=== PATIENT | male | born 1930 | race Caucasian/White ===

== ENCOUNTER 2017-08-19 15:33 | Inpatient (IN) | payer MEDICARE, SELFPAY ==
[~2017-08-19] VITALS: Ht 175.3 cm; Wt 67.7 kg
[2017-08-19] MEDS ORDERED: Carbidopa-Levo1 EAC1 PO (16:15)
[2017-08-19] MEDS ORDERED: TAMS.4ER PO (16:15)
[2017-08-19] MEDS ORDERED: BUME2 PO (16:15)
[2017-08-19] MEDS ORDERED: ELIQUIS2.5 MG PO (16:15)
[2017-08-19] MEDS ORDERED: AMLO10 PO (16:15)
[2017-08-19] MEDS ORDERED: METO50ER PO (16:15)
[2017-08-19 17:24] LABS: BASOPHILS ABSOLUTE AUTO 0.05 K/mm3 (0.00-0.23); BASOPHILS PERCENT AUTO 1 % (0-2); EOSINOPHILS ABSOLUTE AUTO 0.12 K/mm3 (0.00-0.68); EOSINOPHILS PERCENT AUTO 2 % (0-6); Hematocrit 33.8 % (37.0-53.0); Hemoglobin 11.4 g/dL (13.5-17.5); IMMATURE GRAN ABSOLUTE AUTO 0.02 K/mm3 (0.00-0.10); IMMATURE GRAN PERCENT AUTO 0 % (0-1); LYMPHOCYTES ABSOLUTE AUTO 1.29 K/mm3 (0.84-5.20); LYMPHOCYTES PERCENT AUTO 21 % (21-46); MONOCYTES PERCENT AUTO 11 % (4-13); Mean Corpuscular HGB 33.1 pg (26.0-34.0); Mean Corpuscular HGB Conc 33.7 g/dL (31.5-36.5); Mean Corpuscular Volume 98 fL (80-100); NEUTROPHILS ABSOLUTE AUTO 4.06 K/mm3 (1.96-9.15); NEUTROPHILS PERCENT AUTO 65 % (41-73); Platelet Count 228 K/mm3 (150-400); RDW Coefficient Variation 12.1 % (11.7-14.2); RDW Standard Deviation 43.9 fL (35.1-46.3); Red Blood Cell Count 3.44 M/mm3 (4.30-5.90); White Blood Cell Count 6.24 K/mm3 (4.00-11.30)
[2017-08-19 17:49] LABS: Alanine Aminotransfer (ALT/SGP 8 U/L (12-78); Albumin, Blood 3.5 g/dL (3.4-5.0); Albumin/Globulin Ratio 0.8 (0.8-1.8); Alk Phos 103 U/L (50-136); Anion Gap 10 mmol/L (6-16); Aspartate Aminotrans (AST/SGOT 20 U/L (12-37); Bilirubin, Total 0.8 mg/dL (0.1-1.0); Blood Urea Nitrogen 30 mg/dL (8-24); Bun/Creatinine Ratio 14.9 (12.0-20.0); CO2, Blood 31 mmol/L (21-32); Chloride, Blood 99 mmol/L (98-108); Creatinine, Blood 2.02 mg/dL (0.60-1.20); Globulin, Blood 4.2 g/dL (2.2-4.0); Glomerular Filtration Rate 33 (60-); Glucose, Blood 83 mg/dL (70-99); Potassium, Blood 3.4 mmol/L (3.5-5.5); Sodium, Blood 140 mmol/L (136-145); Total Protein, Blood 7.7 g/dL (6.4-8.2)
[2017-08-19 17:50] LABS: Troponin I <0.015 ng/mL (0.000-0.040)
[2017-08-19 18:16] LABS: International Normalized Ratio 1.08; Prothrombin Time Results 11.3 Sec (9.7-11.5)
[2017-08-20 05:14] LABS: BASOPHILS ABSOLUTE AUTO 0.02 K/mm3 (0.00-0.23); BASOPHILS PERCENT AUTO 0 % (0-2); EOSINOPHILS PERCENT AUTO 4 % (0-6); Hematocrit 29.9 % (37.0-53.0); Hemoglobin 10.2 g/dL (13.5-17.5); IMMATURE GRAN ABSOLUTE AUTO 0.01 K/mm3 (0.00-0.10); IMMATURE GRAN PERCENT AUTO 0 % (0-1); LYMPHOCYTES ABSOLUTE AUTO 0.94 K/mm3 (0.84-5.20); LYMPHOCYTES PERCENT AUTO 17 % (21-46); MONOCYTES ABSOLUTE AUTO 0.67 K/mm3 (0.16-1.47); MONOCYTES PERCENT AUTO 12 % (4-13); Mean Corpuscular HGB 33.8 pg (26.0-34.0); Mean Corpuscular HGB Conc 34.1 g/dL (31.5-36.5); Mean Corpuscular Volume 99 fL (80-100); Mean Platelet Volume 10.2 fL (9.1-12.4); NEUTROPHILS ABSOLUTE AUTO 3.65 K/mm3 (1.96-9.15); NEUTROPHILS PERCENT AUTO 67 % (41-73); Platelet Count 203 K/mm3 (150-400); RDW Standard Deviation 43.8 fL (35.1-46.3); Red Blood Cell Count 3.02 M/mm3 (4.30-5.90); White Blood Cell Count 5.49 K/mm3 (4.00-11.30)
[2017-08-20 06:00] LABS: Bun/Creatinine Ratio 17.4 (12.0-20.0); Calcium, Blood 8.5 mg/dL (8.5-10.1); Creatinine, Blood 1.84 mg/dL (0.60-1.20); Potassium, Blood 3.4 mmol/L (3.5-5.5)
[2017-08-20 13:27] LABS: Vancomycin, Random 8.8 ug/mL
[2017-08-21 05:23] LABS: BASOPHILS ABSOLUTE AUTO 0.05 K/mm3 (0.00-0.23); BASOPHILS PERCENT AUTO 1 % (0-2); EOSINOPHILS ABSOLUTE AUTO 0.21 K/mm3 (0.00-0.68); EOSINOPHILS PERCENT AUTO 4 % (0-6); Hematocrit 32.6 % (37.0-53.0); Hemoglobin 11.1 g/dL (13.5-17.5); IMMATURE GRAN ABSOLUTE AUTO 0.01 K/mm3 (0.00-0.10); IMMATURE GRAN PERCENT AUTO 0 % (0-1); LYMPHOCYTES ABSOLUTE AUTO 0.97 K/mm3 (0.84-5.20); LYMPHOCYTES PERCENT AUTO 17 % (21-46); MONOCYTES ABSOLUTE AUTO 0.65 K/mm3 (0.16-1.47); MONOCYTES PERCENT AUTO 11 % (4-13); Mean Corpuscular HGB 33.1 pg (26.0-34.0); Mean Corpuscular Volume 97 fL (80-100); Mean Platelet Volume 9.9 fL (9.1-12.4); NEUTROPHILS PERCENT AUTO 67 % (41-73); Platelet Count 202 K/mm3 (150-400); RDW Coefficient Variation 11.9 % (11.7-14.2); RDW Standard Deviation 42.8 fL (35.1-46.3); Red Blood Cell Count 3.35 M/mm3 (4.30-5.90); White Blood Cell Count 5.79 K/mm3 (4.00-11.30)
[2017-08-21 05:46] LABS: Anion Gap 8 mmol/L (6-16); Blood Urea Nitrogen 32 mg/dL (8-24); Bun/Creatinine Ratio 17.9 (12.0-20.0); CO2, Blood 30 mmol/L (21-32); Calcium, Blood 8.6 mg/dL (8.5-10.1); Chloride, Blood 99 mmol/L (98-108); Creatinine, Blood 1.79 mg/dL (0.60-1.20); Glomerular Filtration Rate 38 (60-); Glucose, Blood 90 mg/dL (70-99); Potassium, Blood 3.8 mmol/L (3.5-5.5); Sodium, Blood 137 mmol/L (136-145); Vancomycin, Random 16.7 ug/mL
[2017-08-22 05:54] LABS: Vancomycin, Random 20.2 ug/mL
[2017-08-22] MEDS ORDERED: CEPH250A PO (10:48)
== END 2017-08-22 11:30 | disposition home or self-care (01) | DRG 607 ==
LOC: ER 15:33 → MEDS 18:46 → ENPENDDIS 08-22 10:26 → MEDS 08-22 11:30
PROVIDERS: Emergency Medicine; Hospitalist; Physician Assistant
DX: S80.822A Blister (nonthermal), left lower leg, initial encounter (principal); N17.9 Acute kidney failure, unspecified; G20 Parkinson's disease; I48.91 Unspecified atrial fibrillation; L03.116 Cellulitis of left lower limb; J44.9 Chronic obstructive pulmonary disease, unspecified; I12.9 Hypertensive chronic kidney disease with stage 1 through stage 4 chronic kidney disease, or unspecified chronic kidney disease; E87.6 Hypokalemia; F17.211 Nicotine dependence, cigarettes, in remission; M79.605 Pain in left leg; N18.9 Chronic kidney disease, unspecified; X58.XXXA Exposure to other specified factors, initial encounter; I87.302 Chronic venous hypertension (idiopathic) without complications of left lower extremity; B95.62 Methicillin resistant Staphylococcus aureus infection as the cause of diseases classified elsewhere; L08.9 Local infection of the skin and subcutaneous tissue, unspecified
CPT/HCPCS: 36415; 71046; 80048; 80053; 80202; 83605; 83880; 84484; 85025; 85610; 85730; 87040; 87070; 87077; 87147; 87186; 87205; 93005; 93010; 93306; 94640; 94760; 96365; 97161; 97530; 99285; G8978; G8979; G8980; J1650; J3370; J7050

== ENCOUNTER 2017-10-29 18:21 | Emergency (ER) | payer MEDICARE, SELFPAY ==
[~2017-10-29] VITALS: Ht 175.3 cm; Wt 59.0 kg
[~2017-10-29 18:21] MED LIST: AMLO10 PO; BUME2 PO; CEPH250A PO; Carbidopa-Levo1 EAC1 PO; ELIQUIS2.5 MG PO; METO50ER PO; TAMS.4ER PO
[2017-10-29 19:28] LABS: BASOPHILS ABSOLUTE AUTO 0.06 K/mm3 (0.00-0.23); BASOPHILS PERCENT AUTO 1 % (0-2); EOSINOPHILS ABSOLUTE AUTO 0.13 K/mm3 (0.00-0.68); EOSINOPHILS PERCENT AUTO 2 % (0-6); Hematocrit 32.5 % (37.0-53.0); IMMATURE GRAN ABSOLUTE AUTO 0.01 K/mm3 (0.00-0.10); IMMATURE GRAN PERCENT AUTO 0 % (0-1); LYMPHOCYTES ABSOLUTE AUTO 0.98 K/mm3 (0.84-5.20); LYMPHOCYTES PERCENT AUTO 17 % (21-46); MONOCYTES ABSOLUTE AUTO 0.61 K/mm3 (0.16-1.47); MONOCYTES PERCENT AUTO 11 % (4-13); Mean Corpuscular HGB 33.7 pg (26.0-34.0); Mean Corpuscular HGB Conc 33.8 g/dL (31.5-36.5); Mean Corpuscular Volume 100 fL (80-100); Mean Platelet Volume 9.7 fL (9.1-12.4); NEUTROPHILS ABSOLUTE AUTO 3.93 K/mm3 (1.96-9.15); NEUTROPHILS PERCENT AUTO 69 % (41-73); Platelet Count 200 K/mm3 (150-400); RDW Coefficient Variation 12.1 % (11.7-14.2); Red Blood Cell Count 3.26 M/mm3 (4.30-5.90); White Blood Cell Count 5.72 K/mm3 (4.00-11.30)
[2017-10-29 19:46] LABS: Alanine Aminotransfer (ALT/SGP 7 U/L (12-78); Albumin, Blood 3.6 g/dL (3.4-5.0); Albumin/Globulin Ratio 0.9 (0.8-1.8); Alk Phos 97 U/L (50-136); Anion Gap 7 mmol/L (6-16); Aspartate Aminotrans (AST/SGOT 18 U/L (12-37); Bilirubin, Total 0.7 mg/dL (0.1-1.0); Blood Urea Nitrogen 47 mg/dL (8-24); Bun/Creatinine Ratio 21.1 (12.0-20.0); CO2, Blood 32 mmol/L (21-32); Calcium, Blood 9.3 mg/dL (8.5-10.1); Chloride, Blood 100 mmol/L (98-108); Creatinine, Blood 2.23 mg/dL (0.60-1.20); Globulin, Blood 3.9 g/dL (2.2-4.0); Glomerular Filtration Rate 30 (60-); Glucose, Blood 91 mg/dL (70-99); Potassium, Blood 3.8 mmol/L (3.5-5.5); Sodium, Blood 139 mmol/L (136-145); Total Protein, Blood 7.5 g/dL (6.4-8.2)
[2017-10-29 20:00] LABS: Troponin I <0.015 ng/mL (0.000-0.040)
== END 2017-10-29 21:20 | disposition home or self-care (01) ==
LOC: ER 18:21
PROVIDERS: Physician Assistant
DX: L30.9 Dermatitis, unspecified (principal); R60.0 Localized edema; Z79.899 Other long term (current) drug therapy; Z87.891 Personal history of nicotine dependence
CPT/HCPCS: 36415; 71046; 80053; 83880; 84484; 85025; 93005; 93010; 99284

== ENCOUNTER 2017-11-01 18:36 | Emergency (ER) | payer MEDICARE, SELFPAY ==
[~2017-11-01] VITALS: Ht 175.3 cm; Wt 68.0 kg
[2017-11-01 19:45] LABS: BASOPHILS ABSOLUTE AUTO 0.06 K/mm3 (0.00-0.23); BASOPHILS PERCENT AUTO 1 % (0-2); EOSINOPHILS ABSOLUTE AUTO 0.12 K/mm3 (0.00-0.68); EOSINOPHILS PERCENT AUTO 2 % (0-6); Hematocrit 27.9 % (37.0-53.0); Hemoglobin 9.6 g/dL (13.5-17.5); IMMATURE GRAN ABSOLUTE AUTO 0.02 K/mm3 (0.00-0.10); IMMATURE GRAN PERCENT AUTO 0 % (0-1); LYMPHOCYTES ABSOLUTE AUTO 1.06 K/mm3 (0.84-5.20); LYMPHOCYTES PERCENT AUTO 16 % (21-46); MONOCYTES ABSOLUTE AUTO 0.67 K/mm3 (0.16-1.47); MONOCYTES PERCENT AUTO 10 % (4-13); Mean Corpuscular HGB 33.9 pg (26.0-34.0); Mean Corpuscular HGB Conc 34.4 g/dL (31.5-36.5); Mean Corpuscular Volume 99 fL (80-100); Mean Platelet Volume 10.5 fL (9.1-12.4); NEUTROPHILS ABSOLUTE AUTO 4.66 K/mm3 (1.96-9.15); NEUTROPHILS PERCENT AUTO 71 % (41-73); Platelet Count 217 K/mm3 (150-400); RDW Coefficient Variation 12.2 % (11.7-14.2); RDW Standard Deviation 43.9 fL (35.1-46.3); Red Blood Cell Count 2.83 M/mm3 (4.30-5.90); White Blood Cell Count 6.59 K/mm3 (4.00-11.30)
[2017-11-01 19:59] LABS: Albumin, Blood 3.6 g/dL (3.4-5.0); Albumin/Globulin Ratio 0.9 (0.8-1.8); Bilirubin, Total 0.5 mg/dL (0.1-1.0); Bun/Creatinine Ratio 21.8 (12.0-20.0); Calcium, Blood 9.1 mg/dL (8.5-10.1); Creatinine, Blood 2.34 mg/dL (0.60-1.20); Globulin, Blood 3.9 g/dL (2.2-4.0); Potassium, Blood 3.9 mmol/L (3.5-5.5); Total Protein, Blood 7.5 g/dL (6.4-8.2)
== END 2017-11-01 20:29 | disposition home or self-care (01) ==
LOC: ER 18:36
PROVIDERS: Emergency Medicine
DX: R41.82 Altered mental status, unspecified (principal); D64.9 Anemia, unspecified; N28.9 Disorder of kidney and ureter, unspecified; I10 Essential (primary) hypertension; I48.91 Unspecified atrial fibrillation; G20 Parkinson's disease; J44.9 Chronic obstructive pulmonary disease, unspecified; Z87.891 Personal history of nicotine dependence; Z79.899 Other long term (current) drug therapy
CPT/HCPCS: 36415; 80053; 85025; 93005; 93010; 99283

== ENCOUNTER 2018-01-31 13:56 | Inpatient (IN) | payer MEDICARE, SELFPAY ==
[~2018-01-31] VITALS: Ht 175.3 cm; Wt 68.0 kg
[2018-01-31 14:56] LABS: BASOPHILS ABSOLUTE AUTO 0.04 K/mm3 (0.00-0.23); BASOPHILS PERCENT AUTO 1 % (0-2); EOSINOPHILS PERCENT AUTO 5 % (0-6); Hemoglobin 9.9 g/dL (13.5-17.5); IMMATURE GRAN ABSOLUTE AUTO 0.01 K/mm3 (0.00-0.10); IMMATURE GRAN PERCENT AUTO 0 % (0-1); LYMPHOCYTES ABSOLUTE AUTO 0.66 K/mm3 (0.84-5.20); LYMPHOCYTES PERCENT AUTO 11 % (21-46); MONOCYTES ABSOLUTE AUTO 0.62 K/mm3 (0.16-1.47); MONOCYTES PERCENT AUTO 10 % (4-13); Mean Corpuscular HGB 33.6 pg (26.0-34.0); Mean Corpuscular Volume 102 fL (80-100); Mean Platelet Volume 10.9 fL (9.1-12.4); NEUTROPHILS ABSOLUTE AUTO 4.61 K/mm3 (1.96-9.15); NEUTROPHILS PERCENT AUTO 74 % (41-73); Platelet Count 205 K/mm3 (150-400); RDW Coefficient Variation 12.6 % (11.7-14.2); RDW Standard Deviation 46.5 fL (35.1-46.3); Red Blood Cell Count 2.95 M/mm3 (4.30-5.90); White Blood Cell Count 6.24 K/mm3 (4.00-11.30)
[2018-01-31 15:13] LABS: Albumin, Blood 2.7 g/dL (3.4-5.0); Albumin/Globulin Ratio 0.7 (0.8-1.8); Bilirubin, Total 0.3 mg/dL (0.1-1.0); Bun/Creatinine Ratio 24.3 (12.0-20.0); Calcium, Blood 8.5 mg/dL (8.5-10.1); Creatinine, Blood 2.67 mg/dL (0.60-1.20); Globulin, Blood 3.8 g/dL (2.2-4.0); Potassium, Blood 3.8 mmol/L (3.5-5.5); Total Protein, Blood 6.5 g/dL (6.4-8.2); Troponin I 0.018 ng/mL (0.000-0.040)
[2018-01-31 15:51] LABS: Source, Urine Clean Catch
[2018-01-31 15:58] LABS: Appearance, Urine Clear (Clear); Bilirubin, Urine Neg (Neg); Blood, Urine Neg (Neg); Color, Urine Yellow (P-Yellow); Glucose Qualitative, Urine Neg (Neg); Ketones, Urine Neg (Neg); Leukocyte Esterase, Urine Neg (Neg); Nitrite, Urine Neg (Neg); Protein, Urine 2+ (Neg); Specific Gravity, Urine 1.015 (1.003-1.022); Urobilinogen, Urine NORM (Normal)
[2018-01-31 16:07] LABS: Bacteria Rare /hpf; Red Blood Cells, Urine 0-2 /hpf (0-2); Squamous Epithelial Cells Rare /hpf (Few); White Blood Cells, Urine 0-2 /hpf (0-5)
[2018-01-31 17:58] LABS: Magnesium, Blood 2.4 mg/dL (1.6-2.4)
[2018-01-31] MEDS ORDERED: SPIR25 PO (18:33)
[2018-02-01 05:03] LABS: BASOPHILS ABSOLUTE AUTO 0.03 K/mm3 (0.00-0.23); BASOPHILS PERCENT AUTO 1 % (0-2); EOSINOPHILS ABSOLUTE AUTO 0.47 K/mm3 (0.00-0.68); EOSINOPHILS PERCENT AUTO 7 % (0-6); Hematocrit 27.2 % (37.0-53.0); IMMATURE GRAN ABSOLUTE AUTO 0.03 K/mm3 (0.00-0.10); IMMATURE GRAN PERCENT AUTO 1 % (0-1); LYMPHOCYTES ABSOLUTE AUTO 0.59 K/mm3 (0.84-5.20); LYMPHOCYTES PERCENT AUTO 9 % (21-46); MONOCYTES ABSOLUTE AUTO 0.58 K/mm3 (0.16-1.47); MONOCYTES PERCENT AUTO 9 % (4-13); Mean Corpuscular HGB 32.6 pg (26.0-34.0); Mean Corpuscular HGB Conc 33.1 g/dL (31.5-36.5); Mean Platelet Volume 10.7 fL (9.1-12.4); NEUTROPHILS ABSOLUTE AUTO 4.65 K/mm3 (1.96-9.15); NEUTROPHILS PERCENT AUTO 73 % (41-73); Platelet Count 208 K/mm3 (150-400); RDW Coefficient Variation 12.7 % (11.7-14.2); RDW Standard Deviation 45.2 fL (35.1-46.3); Red Blood Cell Count 2.76 M/mm3 (4.30-5.90); White Blood Cell Count 6.35 K/mm3 (4.00-11.30)
[2018-02-01 05:05] LABS: Mean Corpuscular Volume 99 fL (80-100)
[2018-02-01 05:28] LABS: Calcium, Blood 8.1 mg/dL (8.5-10.1); Creatinine, Blood 2.44 mg/dL (0.60-1.20); Potassium, Blood 3.7 mmol/L (3.5-5.5)
[2018-02-01] MEDS ORDERED: Hair, Skin & N1 EACH PO (10:12)
[2018-02-01] MEDS ORDERED: VITAMIN C500 M1 PO (10:12)
[2018-02-01] MEDS ORDERED: FISH OIL 500 M1 EAC1 PO (10:13)
[2018-02-02 04:49] LABS: BASOPHILS ABSOLUTE AUTO 0.03 K/mm3 (0.00-0.23); BASOPHILS PERCENT AUTO 1 % (0-2); EOSINOPHILS ABSOLUTE AUTO 0.51 K/mm3 (0.00-0.68); EOSINOPHILS PERCENT AUTO 8 % (0-6); Hematocrit 29.6 % (37.0-53.0); Hemoglobin 9.7 g/dL (13.5-17.5); IMMATURE GRAN ABSOLUTE AUTO 0.02 K/mm3 (0.00-0.10); IMMATURE GRAN PERCENT AUTO 0 % (0-1); LYMPHOCYTES ABSOLUTE AUTO 0.72 K/mm3 (0.84-5.20); LYMPHOCYTES PERCENT AUTO 11 % (21-46); MONOCYTES ABSOLUTE AUTO 0.68 K/mm3 (0.16-1.47); MONOCYTES PERCENT AUTO 10 % (4-13); Mean Corpuscular HGB 32.3 pg (26.0-34.0); Mean Corpuscular HGB Conc 32.8 g/dL (31.5-36.5); Mean Corpuscular Volume 99 fL (80-100); Mean Platelet Volume 10.6 fL (9.1-12.4); NEUTROPHILS ABSOLUTE AUTO 4.69 K/mm3 (1.96-9.15); NEUTROPHILS PERCENT AUTO 71 % (41-73); Platelet Count 198 K/mm3 (150-400); RDW Coefficient Variation 12.6 % (11.7-14.2); RDW Standard Deviation 45.3 fL (35.1-46.3); White Blood Cell Count 6.65 K/mm3 (4.00-11.30)
[2018-02-02 05:08] LABS: Albumin, Blood 2.3 g/dL (3.4-5.0); Anion Gap 9 mmol/L (6-16); Blood Urea Nitrogen 52 mg/dL (8-24); Bun/Creatinine Ratio 24.3 (12.0-20.0); CO2, Blood 29 mmol/L (21-32); Chloride, Blood 101 mmol/L (98-108); Creatinine, Blood 2.14 mg/dL (0.60-1.20); Glomerular Filtration Rate 31 (60-); Glucose, Blood 89 mg/dL (70-99); Phosphorus, Blood 2.2 mg/dL (2.5-4.9); Potassium, Blood 4.2 mmol/L (3.5-5.5); Sodium, Blood 139 mmol/L (136-145)
[2018-02-03 05:11] LABS: BASOPHILS ABSOLUTE AUTO 0.04 K/mm3 (0.00-0.23); BASOPHILS PERCENT AUTO 1 % (0-2); EOSINOPHILS ABSOLUTE AUTO 0.56 K/mm3 (0.00-0.68); EOSINOPHILS PERCENT AUTO 9 % (0-6); Hematocrit 29.2 % (37.0-53.0); Hemoglobin 9.9 g/dL (13.5-17.5); IMMATURE GRAN ABSOLUTE AUTO 0.04 K/mm3 (0.00-0.10); IMMATURE GRAN PERCENT AUTO 1 % (0-1); LYMPHOCYTES PERCENT AUTO 11 % (21-46); MONOCYTES ABSOLUTE AUTO 0.59 K/mm3 (0.16-1.47); MONOCYTES PERCENT AUTO 9 % (4-13); Mean Corpuscular HGB 33.2 pg (26.0-34.0); Mean Corpuscular HGB Conc 33.9 g/dL (31.5-36.5); Mean Corpuscular Volume 98 fL (80-100); Mean Platelet Volume 10.6 fL (9.1-12.4); NEUTROPHILS PERCENT AUTO 71 % (41-73); Platelet Count 194 K/mm3 (150-400); RDW Coefficient Variation 12.5 % (11.7-14.2); RDW Standard Deviation 44.8 fL (35.1-46.3); Red Blood Cell Count 2.98 M/mm3 (4.30-5.90); White Blood Cell Count 6.53 K/mm3 (4.00-11.30)
[2018-02-03 05:30] LABS: Albumin, Blood 2.2 g/dL (3.4-5.0); Anion Gap 9 mmol/L (6-16); Blood Urea Nitrogen 46 mg/dL (8-24); Bun/Creatinine Ratio 23.7 (12.0-20.0); CO2, Blood 28 mmol/L (21-32); Calcium, Blood 7.7 mg/dL (8.5-10.1); Chloride, Blood 101 mmol/L (98-108); Creatinine, Blood 1.94 mg/dL (0.60-1.20); Glomerular Filtration Rate 35 (60-); Glucose, Blood 84 mg/dL (70-99); Phosphorus, Blood 2.1 mg/dL (2.5-4.9); Potassium, Blood 3.8 mmol/L (3.5-5.5); Sodium, Blood 138 mmol/L (136-145)
[2018-02-04 04:51] LABS: BASOPHILS ABSOLUTE AUTO 0.03 K/mm3 (0.00-0.23); BASOPHILS PERCENT AUTO 1 % (0-2); EOSINOPHILS ABSOLUTE AUTO 0.63 K/mm3 (0.00-0.68); EOSINOPHILS PERCENT AUTO 10 % (0-6); Hematocrit 29.2 % (37.0-53.0); Hemoglobin 9.7 g/dL (13.5-17.5); IMMATURE GRAN ABSOLUTE AUTO 0.03 K/mm3 (0.00-0.10); IMMATURE GRAN PERCENT AUTO 1 % (0-1); LYMPHOCYTES ABSOLUTE AUTO 0.72 K/mm3 (0.84-5.20); LYMPHOCYTES PERCENT AUTO 11 % (21-46); MONOCYTES ABSOLUTE AUTO 0.61 K/mm3 (0.16-1.47); MONOCYTES PERCENT AUTO 9 % (4-13); Mean Corpuscular HGB 32.4 pg (26.0-34.0); Mean Corpuscular HGB Conc 33.2 g/dL (31.5-36.5); Mean Corpuscular Volume 98 fL (80-100); Mean Platelet Volume 10.5 fL (9.1-12.4); NEUTROPHILS PERCENT AUTO 69 % (41-73); Platelet Count 215 K/mm3 (150-400); RDW Coefficient Variation 12.7 % (11.7-14.2); RDW Standard Deviation 44.6 fL (35.1-46.3); Red Blood Cell Count 2.99 M/mm3 (4.30-5.90); White Blood Cell Count 6.52 K/mm3 (4.00-11.30)
[2018-02-04 05:12] LABS: Albumin, Blood 2.2 g/dL (3.4-5.0); Anion Gap 8 mmol/L (6-16); Blood Urea Nitrogen 43 mg/dL (8-24); Bun/Creatinine Ratio 24.4 (12.0-20.0); CO2, Blood 28 mmol/L (21-32); Calcium, Blood 7.7 mg/dL (8.5-10.1); Chloride, Blood 105 mmol/L (98-108); Creatinine, Blood 1.76 mg/dL (0.60-1.20); Glomerular Filtration Rate 39 (60-); Glucose, Blood 83 mg/dL (70-99); Phosphorus, Blood 2.3 mg/dL (2.5-4.9); Potassium, Blood 4.2 mmol/L (3.5-5.5); Sodium, Blood 141 mmol/L (136-145)
[2018-02-05 04:57] LABS: Albumin, Blood 2.2 g/dL (3.4-5.0); Anion Gap 7 mmol/L (6-16); Blood Urea Nitrogen 45 mg/dL (8-24); Bun/Creatinine Ratio 27.1 (12.0-20.0); CO2, Blood 28 mmol/L (21-32); Calcium, Blood 7.7 mg/dL (8.5-10.1); Chloride, Blood 104 mmol/L (98-108); Creatinine, Blood 1.66 mg/dL (0.60-1.20); Glomerular Filtration Rate 42 (60-); Glucose, Blood 129 mg/dL (70-99); Phosphorus, Blood 1.9 mg/dL (2.5-4.9); Potassium, Blood 4.1 mmol/L (3.5-5.5); Sodium, Blood 139 mmol/L (136-145)
[2018-02-05] MEDS ORDERED: ACET325 PO (11:28)
[2018-02-05] MEDS ORDERED: AMLO10 PO (11:29)
[2018-02-05] MEDS ORDERED: CEPH500 (11:30)
[2018-02-05] MEDS ORDERED: Acidophilus La100 GM (11:31)
== END 2018-02-05 15:08 | DRG 603 ==
LOC: ER 13:56 → MEDS 17:33 → ENPENDDIS 02-05 10:43 → EDPENDDIS 02-05 10:43 → MEDS 02-05 15:08
PROVIDERS: Family Medicine; Nurse Practitioner Acute Care; Physician Assistant
DX: L03.116 Cellulitis of left lower limb (principal); N17.9 Acute kidney failure, unspecified; N39.0 Urinary tract infection, site not specified; L03.115 Cellulitis of right lower limb; I87.2 Venous insufficiency (chronic) (peripheral); E86.9 Volume depletion, unspecified; I12.9 Hypertensive chronic kidney disease with stage 1 through stage 4 chronic kidney disease, or unspecified chronic kidney disease; N18.3 Chronic kidney disease, stage 3 (moderate); I48.2 Chronic atrial fibrillation; R00.1 Bradycardia, unspecified; E83.39 Other disorders of phosphorus metabolism; R60.0 Localized edema; J44.9 Chronic obstructive pulmonary disease, unspecified; D63.1 Anemia in chronic kidney disease; G20 Parkinson's disease; R53.1 Weakness; N40.1 Benign prostatic hyperplasia with lower urinary tract symptoms; R33.8 Other retention of urine; Z79.01 Long term (current) use of anticoagulants; Z79.899 Other long term (current) drug therapy; Z87.891 Personal history of nicotine dependence
CPT/HCPCS: 36415; 51702; 71046; 76770; 80048; 80053; 80069; 81001; 82947; 83735; 84484; 85025; 85027; 93005; 93010; 96365; 96366; 97116; 97162; 97166; 97530; 97535; 99285-25; G8978; G8979; G8987; G8988; J0690; J7030; J7040

== ENCOUNTER 2018-10-02 15:34 | Inpatient (IN) | payer MEDICARE ==
[~2018-10-02] VITALS: Ht 152.4 cm; Wt 64.3 kg
[~2018-10-02 15:34] MED LIST changes: +ACET325 PO; +Acidophilus La100 GM; +CEPH500; +FISH OIL 500 M1 EAC1 PO; +Hair, Skin & N1 EACH PO; +SPIR25 PO; +VITAMIN C500 M1 PO
[2018-10-02 15:50] LABS: Hematocrit 38.2 % (37.0-53.0); Hemoglobin 12.3 g/dL (13.5-17.5); Mean Corpuscular HGB 33.1 pg (26.0-34.0); Mean Corpuscular HGB Conc 32.2 g/dL (31.5-36.5); Mean Corpuscular Volume 103 fL (80-100); Mean Platelet Volume 9.9 fL (9.1-12.4); Platelet Count 279 K/mm3 (150-400); RDW Standard Deviation 53.2 fL (35.1-46.3); Red Blood Cell Count 3.72 M/mm3 (4.30-5.90); White Blood Cell Count 10.38 K/mm3 (4.00-11.30)
[2018-10-02 16:07] LABS: International Normalized Ratio 1.01; Prothrombin Time Results 10.7 Sec (9.7-11.5)
[2018-10-02 16:11] LABS: BASOPHILS PERCENT MAN 0 % (0-2); EOSINOPHILS PERCENT MAN 0 % (0-6); LYMPHOCYTES % ATYPICAL MANUAL 1 % (0-0); LYMPHOCYTES ABSOLUTE MAN 1.14 K/mm3 (0.84-5.20); LYMPHOCYTES PERCENT MAN 10 % (21-46); MONOCYTES ABSOLUTE MAN 0.93 K/mm3 (0.16-1.47); MONOCYTES PERCENT MAN 9 % (4-13); SEG NEUTROPHILS PERCENT MAN 80 % (41-73); TOTAL CELLS COUNTED 100
[2018-10-02 16:14] LABS: Creatine Kinase MB 40.5 ng/mL (0.0-3.6)
[2018-10-02 16:43] LABS: Albumin, Blood 3.9 g/dL (3.4-5.0); Albumin/Globulin Ratio 0.8 (0.8-1.8); Bun/Creatinine Ratio 25.7 (12.0-20.0); Calcium, Blood 10.1 mg/dL (8.5-10.1); Creatinine, Blood 3.39 mg/dL (0.60-1.20); Globulin, Blood 4.7 g/dL (2.2-4.0); Potassium, Blood 6.3 mmol/L (3.5-5.5); Total Protein, Blood 8.6 g/dL (6.4-8.2)
[2018-10-02] MEDS ORDERED: BUME2 PO (17:46)
[2018-10-02 18:10] LABS: Source, Urine Clean Catch
[2018-10-02 18:17] LABS: Bilirubin, Urine Neg (Neg); Blood, Urine 4+ (Neg); Glucose Qualitative, Urine Neg (Neg); Ketones, Urine Neg (Neg); Leukocyte Esterase, Urine Neg (Neg); Nitrite, Urine Neg (Neg); Protein, Urine 3+ (Neg); Specific Gravity, Urine 1.005 (1.003-1.022); Urobilinogen, Urine NORM (Normal)
[2018-10-02 18:36] LABS: Appearance, Urine Hazy (Clear); Color, Urine Yellow (P-Yellow)
[2018-10-02 18:38] LABS: Bacteria Not Seen /hpf; Red Blood Cells, Urine 0-2 /hpf (0-2); Squamous Epithelial Cells Not Seen /hpf (Few); White Blood Cells, Urine 0-2 /hpf (0-5)
[2018-10-02] MEDS ORDERED: Triamcinolone A15 G3 TOP (21:32)
--- NOTE | 2018-10-03 02:16 | NUR ---
ASSUMED CARE OF PATIENT AT APPROXIMATELY 1900 FROM SARIAH Sheikh RN AND SHANA CHAMORRO. PATIENT LETHARGIC AT SHIFT CHANGE; SLEPT THROUGH BEDSIDE REPORT. PATIENT'S FAMILY IN ROOM. 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 PATIENT COUGHED AFTER ADMINISTERING PILLS WATER; PATIENT STATED HE WOULD ONLY TAKE PILLS WITH WATER. PATIENT OPENED EYES TO VERBAL STIMULUS LATER IN SHIFT. PATIENT ORIENTED TO SELF AND ONLY. NSR W/ BBB AND PVC'S ON TELE; OXYGEN SATURATION ABOVE 90% ON ROOM AIR. PATIENT REPORTS HE DOESNT NEED TO URINATE WHEN ASKED; FAMILY REPORTS PATIENT CAN BE INCONTINENT AT TIMES; NO OUTPUT THIS SHIFT. PHOTOS TAKEN OF HIPS, ELBOW AND LEGS; BRUISING AND SCABS; MEPILEX PLACED. PATIENT DENIES PAIN. NS AND PROTONIX INFUSING PER ORDER. TURNED Q2H. FAMILY MEMBERS EXPRESSED CONCERN ABOUT PATIENT LIVING ALONE. PATIENT CURRENTLY SLEEPING IN BED; CALL LIGHT IN REACH; BED IN LOWEST POSISTION; BED ALARM ON; WILL CONTINUE TO MONITOR AND ASSESS UNTIL END OF SHIFT.
[2018-10-03 04:14] LABS: BASOPHILS ABSOLUTE AUTO 0.03 K/mm3 (0.00-0.23); BASOPHILS PERCENT AUTO 1 % (0-2); EOSINOPHILS ABSOLUTE AUTO 0.02 K/mm3 (0.00-0.68); EOSINOPHILS PERCENT AUTO 0 % (0-6); Hematocrit 29.9 % (37.0-53.0); Hemoglobin 9.5 g/dL (13.5-17.5); IMMATURE GRAN ABSOLUTE AUTO 0.01 K/mm3 (0.00-0.10); IMMATURE GRAN PERCENT AUTO 0 % (0-1); LYMPHOCYTES ABSOLUTE AUTO 0.55 K/mm3 (0.84-5.20); LYMPHOCYTES PERCENT AUTO 9 % (21-46); MONOCYTES ABSOLUTE AUTO 0.64 K/mm3 (0.16-1.47); MONOCYTES PERCENT AUTO 10 % (4-13); Mean Corpuscular HGB 32.9 pg (26.0-34.0); Mean Corpuscular HGB Conc 31.8 g/dL (31.5-36.5); Mean Corpuscular Volume 104 fL (80-100); Mean Platelet Volume 10.5 fL (9.1-12.4); NEUTROPHILS ABSOLUTE AUTO 5.09 K/mm3 (1.96-9.15); NEUTROPHILS PERCENT AUTO 80 % (41-73); Platelet Count 202 K/mm3 (150-400); RDW Coefficient Variation 14.1 % (11.7-14.2); Red Blood Cell Count 2.89 M/mm3 (4.30-5.90); White Blood Cell Count 6.34 K/mm3 (4.00-11.30)
[2018-10-03 04:29] LABS: Source, Urine Clean Catch
[2018-10-03 04:33] LABS: Bilirubin, Urine Neg (Neg); Blood, Urine 3+ (Neg); Glucose Qualitative, Urine Neg (Neg); Ketones, Urine Neg (Neg); Leukocyte Esterase, Urine Neg (Neg); Nitrite, Urine Neg (Neg); Protein, Urine 3+ (Neg); Urobilinogen, Urine NORM (Normal)
[2018-10-03 04:39] LABS: Magnesium, Blood 2.5 mg/dL (1.6-2.4)
[2018-10-03 04:39] LABS: Appearance, Urine Clear (Clear); Color, Urine Yellow (P-Yellow)
[2018-10-03 04:40] LABS: Bacteria Few /hpf; Red Blood Cells, Urine 0-2 /hpf (0-2); Squamous Epithelial Cells Not Seen /hpf (Few); White Blood Cells, Urine 0-2 /hpf (0-5)
[2018-10-03 04:40] LABS: Albumin, Blood 2.9 g/dL (3.4-5.0); Albumin/Globulin Ratio 0.9 (0.8-1.8); Bilirubin, Total 0.8 mg/dL (0.1-1.0); Calcium, Blood 8.8 mg/dL (8.5-10.1); Creatinine, Blood 3.08 mg/dL (0.60-1.20); Globulin, Blood 3.3 g/dL (2.2-4.0); Potassium, Blood 4.4 mmol/L (3.5-5.5)
[2018-10-03 05:08] LABS: Total Protein, Blood 6.2 g/dL (6.4-8.2)
--- NOTE | 2018-10-03 06:20 | NUR ---
PATIENT HAD NOT VOIDED; PATIENT STATED HE WAS NOT ABLE TO VOID INTO URINAL; BLADDER SCAN SHOWED OVER 999 MLS; ALSO PATIENT COUGHS AFTER SIPS OF WATER AT START OF SHIFT; DR. JEFFRIES CALLED; ORDERS RECIEVED. ABOUT 1200 MLS OF URINE DRAINED IMMEDIATELY; PATIENT SLEPT THROUGHT MOST OF CATHETER INSERTION. PATIENT HAS SLEPT FOR ABOUT ELEVEN HOURS. PATIENT HAS DRIED BLOOD IN MOUTH; ORAL CARE DONE; DENTURES REMOVED. PATIENT APPEARS TO BE MORE ALERT THIS MORNING. NO OTHER ACUTE CHANGES TO REPORT;
[2018-10-03 09:35] LABS: Creatine Kinase MB 25.6 ng/mL (0.0-3.6); Creatine Kinase MB Index 1.4 (0.0-4.0)
--- NOTE | 2018-10-03 10:41 | NUR ---
ASSUMED PT AT 0700. PT IS LYING IN BED W/ HOB ELEVATED. PT HAS A FLAT AFFECT. PATIENT ALERT AND ORIENTATED X4. HS IRREGULAR. RHYTHMN A FIB PER PCU STUDENT ADMISSIONS CLERK. LUNG SOUNDS DIMINISHED AT BASES ON RA. SCATTERED BRUISING AND SWOLLEN FEET. PT REQUESTS WATER BUT SPEECH CONSULT SUGGESTED THICKENED LIQUIDS 1030. CATHETER PLACED LAST NIGHT DUE TO RETNETION. FLOWING. URINE CLEAR AND YELLOW. DAUGHTER IS PRESENTLY IN THE ROOM TALKING W/ THE PT.
--- NOTE | 2018-10-03 13:21 | NUR ---
Met with patient to assess him. Pt moderate eye contact, Face mask like. repeats that they need to do what I want. He then drifts into conversation of his dying and he had a pickup and thats all he wants is his and pickup back. He repeated this throughout the visit. Attempted to have him participate in limited conversation he was unable. Review of patient with nursing. Relays discussion with family and update from Speech on pt needs and prognoisis. Review of medications with pharmacy to see what other viable delivery methods with and without the PEG tube to continue Parkinsons care. DIL states he lives near them in a trailer and they check on him every few days and have a family caregiver. They have tried to keep him independent. She states that he has not been taking his medications. He has has been getting more forgetfull and declining. He was a DNR and made himself a full code. We reviewed POA and POLST and advised a family meeting is needed to settle plan of care. Review of a plan for meeting with careyoanager with son hopefully today or in AM. DIL states they will sell his trailer and advised we will do financial plan with care manger for care. Review with care mgr strategies is discharge and care. Pt high risk for readmission for increasing parkinsons symptoms. Pt KPS score is 40%. Pt dependent in most ADL's, pt aspirating. OT to do assessment of ability. Pt high risk to pull out a peg tube. Pt high risk for injury. Review with family hospice care and DIL states primary care had also reviewed hospice on a visit due to declining renal function. goal is complete polst and DC to facility.
--- NOTE | 2018-10-03 18:10 | NUR ---
PT HAS BEEN REVERTING BACK AND FORTH BETWEEN AFIB AND SINUS TACH. PT HAD SPEECH THERAPY CONSULT STATING HE IS NECTOR THICK AND FULL LIQUID DIET. PALLITIVE CARE IS WORKING WITH FAMILY TO DISCUSS FUTURE PLANS AND PLACEMENT AFTER DISCHARGE. WILL CONTINUE TO ASSESS TILL END OF SHIFT. CALL LIGHT WITHIN REACH.
--- NOTE | 2018-10-03 22:00 | NUR ---
UPDATE PATIENT ABLE TO STATE NAME BUT UNABLE TO STATE BIRTHDATE OR PRESIDENT. WHEN ASKED THE DATE HE STATED, "TETO." AND WHEN ASKED IF HE KNEW WHERE HE WAS HE STATED, "[place]." PATIENT REORIENTED ACCORDINGLY. PATIENT DID NOT KNOW WHEY HE WAS AT THE HOSPITAL WHEN ASKED BUT WHEN ORIENTED TO REASON OF VISIT PATIENT STATED, "I FEEL IN THE BATHTUB." PATIENT REPORTS HE HAS PAIN, "ALL OVER" AND THAT HE HAS IT ALL THE TIME. HOWEVER, PATIENT APPEARS TO FALL ASLEEP EASILY AND REST COMFORTABLY AT THIS TIME, WILL MONITOR. BED IN LOW POSITION, BED ALRM ON FOR SAFETY. CALL LIGHT WITHIN REACH.
[2018-10-04 04:03] LABS: BASOPHILS ABSOLUTE AUTO 0.04 K/mm3 (0.00-0.23); BASOPHILS PERCENT AUTO 1 % (0-2); EOSINOPHILS ABSOLUTE AUTO 0.28 K/mm3 (0.00-0.68); EOSINOPHILS PERCENT AUTO 4 % (0-6); Hematocrit 30.8 % (37.0-53.0); Hemoglobin 9.8 g/dL (13.5-17.5); IMMATURE GRAN ABSOLUTE AUTO 0.02 K/mm3 (0.00-0.10); IMMATURE GRAN PERCENT AUTO 0 % (0-1); LYMPHOCYTES ABSOLUTE AUTO 0.84 K/mm3 (0.84-5.20); LYMPHOCYTES PERCENT AUTO 11 % (21-46); MONOCYTES ABSOLUTE AUTO 0.73 K/mm3 (0.16-1.47); MONOCYTES PERCENT AUTO 10 % (4-13); Mean Corpuscular HGB 33.2 pg (26.0-34.0); Mean Corpuscular HGB Conc 31.8 g/dL (31.5-36.5); Mean Corpuscular Volume 104 fL (80-100); Mean Platelet Volume 10.7 fL (9.1-12.4); NEUTROPHILS ABSOLUTE AUTO 5.48 K/mm3 (1.96-9.15); NEUTROPHILS PERCENT AUTO 74 % (41-73); Platelet Count 171 K/mm3 (150-400); RDW Coefficient Variation 14.2 % (11.7-14.2); RDW Standard Deviation 54.8 fL (35.1-46.3); Red Blood Cell Count 2.95 M/mm3 (4.30-5.90); White Blood Cell Count 7.39 K/mm3 (4.00-11.30)
[2018-10-04 04:23] LABS: Creatine Kinase MB 12.7 ng/mL (0.0-3.6); Creatine Kinase MB Index 1.3 (0.0-4.0)
[2018-10-04 04:24] LABS: Albumin, Blood 2.5 g/dL (3.4-5.0); Albumin/Globulin Ratio 0.8 (0.8-1.8); Bilirubin, Total 0.4 mg/dL (0.1-1.0); Bun/Creatinine Ratio 22.7 (12.0-20.0); Calcium, Blood 8.3 mg/dL (8.5-10.1); Creatinine, Blood 2.73 mg/dL (0.60-1.20); Globulin, Blood 3.2 g/dL (2.2-4.0); Total Protein, Blood 5.7 g/dL (6.4-8.2)
--- NOTE | 2018-10-04 06:08 | NUR ---
SHIFT SUMMARY PATIENT PLEASENT AND COOPERATIVE THROUGHOUT THE NIGHT. PATIENT APPEARED TO SLEEP WELL ALL NIGHT. PATIENT DID NOT SET THE BED ALARM OFF LAST NIGHT. HOWEVER PATIENT REMAINS COMFUSED AND DOES NOT REORIENT EASILY AT THIS TIME. PATIENT TURNED Q2H. IV FLUIDS AND PROTONIX RUNNING PER ORDERS. WILL CONTINUE TO MONITOR PATIENT AND REPORT TO ONCOMING RN.
--- NOTE | 2018-10-04 08:10 | NUR ---
NURSING PCU DAYSHIFT: Assumed care of pt at approx 0700. Forgetful, intermittently answers some orientation questions appropriately, irritable at times when redirection is required. General weakness noted, repositions w/staff assist. Scattered bruising on UE's, abrasions to b/l hips w/mepilex dressings in place, scab to knee open to air, BLE red/warm. Tele in place, NSR w/BBB, SBP 120's prior to a.m. meds, no c/o CP/pressure. L/S fairly cta t/o w/dim bases, O2 sat mid 90's on RA, HOOP MAKER HELPER MACHINE cough. Abd SNT, BT hypoactive, frequent requests for thin liquids, FC w/stat lock in place and draining well. PIV x2, protonix gtt at 10cc/hr, D5 1/2 NS at 100cc/hr. Pt currently sitting on edge of bed having FL breakfast and thickened liquids w/peer RN assist. Educated pt regarding aspiration risk w/oral intake to which pt replied, "I don't give a shit about my lungs." Bed alarm to be used at all times for safety purposes. Will maintain repositioning schedule for further pressure ulcer prevention. Awaiting rounding from PMD, cont to monitor for changes.
--- NOTE | 2018-10-04 08:11 | NUR ---
Assisted Vidal to upright sitting position on the side of the bed. He states that he only wants to drink clear cold water. Refused to eat any breakfast. He was upset that the water was thickened. Sitting up right on the edge of the bed with his legs dangling to the floor, he took sips of thickened water. After a drink of water, he coughed to clear his airway, and had gurgling sounds in his throat while talking to me afterwards. He is trying to take his ID bracelet and his IV out. States that he can't drive with them on, and he needs to get out of here and drive home. He gets irritated and argumentative when staff attempt to correct and reorient him. States that he fell here at the hospital over a bathtub. States that he did not fall at home.
--- NOTE | 2018-10-04 17:49 | NUR ---
NURSING PCU DAYSHIFT SUMMARY: No significant changes noted t/o the shift. Pt remains intermittently confused though is redirectable and cooperative w/care. Continues to request food and drinks (thin liquids w/straws specifically), FL meals w/thickened fluids being provided. Son and family at bedside this evening. Discussed care plan options including making pt NPO and placing a PEG tube if remaining a full code or changing code status and allowing pt to continue to eat/drink as pt chooses. Family currently in room w/door shut discussing options. Family imformed that care team will support and provide appropriate care for whichever decision family chooses. No s/s of acute distress at this time. Call light in reach, cont to monitor until rpt is given to NOC RN.
--- NOTE | 2018-10-04 19:24 | NUR ---
Met with patient he was visiting with his DIL. Nursing reviewed care with son and daughter they were discussing care. Pt fixated on bulletin board and unable to track conversation. pt repeats and fixates. Son and daughter returned they had questions about going forward and placement. Advised that he will need caregiver help they state he has been not wanting to let people in the house and he is declining. Stated they will have to care for him but health care coordinator has been contacting them to help with information on placement. Son works long hours so advised him to set a time when available. Pt is a vet but no service conection. Reviewed with family parkinsons, loss of function and risk for increased symptoms of pain and airhunger. They asked how long he has to live. Advised we cannot predict. Reviewed his diseases and how he is declining and risk for infection. We reviewed CPR and how he has wanted everything. We discussed that all or nothing is not the conversation goal is respectfull holistic care that provides treatment and releives suffering. Family decided on no CPR with limited treatment and allow a more natural and allow him to eat. We discussed transition to hospice and the support it provides and end stage parkinsons. They are still intersted in giving him care and expressed understanding of levels and eventual need to transtion to hospice. They have experinced ICU and hospice with other family members. We reviewed getting POA and family discussion of his needs pt does not have a will he has placed his son as a decision maker and sister has stated he will make the decisons she is here to help and discuss. Family is engaged and supportive but they all work long hours so need a new plan for him.
--- NOTE | 2018-10-05 08:00 | NUR ---
pt laying on his side, slow to wake, seems sleepy this am, some confusion noted, took his po meds crushed in applesauce without diff, alert when woke, cooperative with care, follows commands with lots of direction, lungs are dim and tight t/o, resp even and unlabored, no cough noted, hrr, tele in place running sr with pacs per monitor, see strip, trace edema noted to b/l le, ppp+1, cap refill <3sec, vs stable, afebrile, iv site is clear and patent, btx4, abd flat soft nontender, voids without diff, skin is dark to b/l le, is red on pressure points, other brewster c/w/d, maew, bed alarm is activated as he is somewhat confused, call light in reach, bedside table in reach.
--- NOTE | 2018-10-05 08:23 | NUR ---
SHIFT SUMMARY PATIENT SLIGHTLY IRRITABLE THROUGHOUT THE NIGHT. PATIENT FREQUENTLY REQUESTED HIS THICKENED WATER WHICH HE WAS PROVIDED WITH AND SUPERVISED WITH EACH TIME. PATIENT PROVIDED WITH THE BEDPAN SEVERAL TIMES TO ATTEMPT A BM WITH NO RESULTS. PATIENT MORE ALERT AND ORIENTED THAN LAST NIGHT. PATIENT WAS ABLE TO STATE HIS NAME, BIRTHDATE, DATE, YEAR, AND LOCATION BUT HE WAS UNABLE TO STATE THE CURRENT PRESIDENT. HOWEVER, PATIENT DOES CONTINUE TO BE CONFUSED AND FORGETFUL AT TIMES, PATIENT REORIENTED APPROPRIATLY EACH TIME HOWEVER PATIENT DOES NOT ALWAYS EASILY REORIENT. IV FLUIDS AND PROTONIX GTT RUNNING PER ORDERS. PATIENT TURNED Q2H. VITAL SIGNS CHARTED. REPORT GIVEN TO ONCOMING RN.
[2018-10-05 08:54] LABS: BASOPHILS ABSOLUTE AUTO 0.03 K/mm3 (0.00-0.23); BASOPHILS PERCENT AUTO 0 % (0-2); EOSINOPHILS PERCENT AUTO 5 % (0-6); Hematocrit 32.7 % (37.0-53.0); Hemoglobin 10.4 g/dL (13.5-17.5); IMMATURE GRAN ABSOLUTE AUTO 0.01 K/mm3 (0.00-0.10); IMMATURE GRAN PERCENT AUTO 0 % (0-1); LYMPHOCYTES ABSOLUTE AUTO 0.66 K/mm3 (0.84-5.20); LYMPHOCYTES PERCENT AUTO 10 % (21-46); MONOCYTES PERCENT AUTO 10 % (4-13); Mean Corpuscular HGB 33.7 pg (26.0-34.0); Mean Corpuscular HGB Conc 31.8 g/dL (31.5-36.5); Mean Corpuscular Volume 106 fL (80-100); NEUTROPHILS PERCENT AUTO 75 % (41-73); Platelet Count 171 K/mm3 (150-400); RDW Coefficient Variation 14.3 % (11.7-14.2); RDW Standard Deviation 55.1 fL (35.1-46.3); Red Blood Cell Count 3.09 M/mm3 (4.30-5.90)
[2018-10-05 09:16] LABS: Albumin, Blood 2.6 g/dL (3.4-5.0); Albumin/Globulin Ratio 0.7 (0.8-1.8); Bilirubin, Total 0.5 mg/dL (0.1-1.0); Bun/Creatinine Ratio 19.9 (12.0-20.0); Creatinine, Blood 2.21 mg/dL (0.60-1.20); Globulin, Blood 3.7 g/dL (2.2-4.0); Total Protein, Blood 6.3 g/dL (6.4-8.2)
--- NOTE | 2018-10-05 14:15 | NUR ---
son in to see pt, spoke with pt unchanged condition, very confused. call light in reach.
--- NOTE | 2018-10-05 16:02 | NUR ---
review or pt plan with hospitalist post processed to medical records
--- NOTE | 2018-10-05 18:21 | NUR ---
pt has been transfered to medical floor, report given to recieving nurse. pt resting in bed, doing ok. has attempted to get oob today a number of times, got him up to a chair with two person assist. will move to medical floor via wheelchair. call light in reach.
--- NOTE | 2018-10-06 05:38 | NUR ---
SHIFT SUMMARY PT SLEPT WELL DURING THE NIGHT, HAD BEEN UP TO COMMODE WITH AO2 TO TRY AND HAVE BM. BED ALARM ON PT TRIES TO GET OUT OF BED ON HIS OWN. PT TRIES TO COMMUNICATE WITH STAFF, BUT IT IS DIFFICULT TO UNDERSTAND WHAT HE IS TRYING TO SAY. NO ACUTE EVENTS NOTED DURING THE NIGHT, WILL CONTINUE TO MONITOR.
[2018-10-06 06:31] LABS: BASOPHILS ABSOLUTE AUTO 0.03 K/mm3 (0.00-0.23); BASOPHILS PERCENT AUTO 1 % (0-2); EOSINOPHILS ABSOLUTE AUTO 0.42 K/mm3 (0.00-0.68); EOSINOPHILS PERCENT AUTO 7 % (0-6); Hematocrit 31.3 % (37.0-53.0); Hemoglobin 10.1 g/dL (13.5-17.5); IMMATURE GRAN ABSOLUTE AUTO 0.01 K/mm3 (0.00-0.10); IMMATURE GRAN PERCENT AUTO 0 % (0-1); LYMPHOCYTES ABSOLUTE AUTO 0.66 K/mm3 (0.84-5.20); LYMPHOCYTES PERCENT AUTO 11 % (21-46); MONOCYTES PERCENT AUTO 10 % (4-13); Mean Corpuscular HGB 33.7 pg (26.0-34.0); Mean Corpuscular HGB Conc 32.3 g/dL (31.5-36.5); Mean Corpuscular Volume 104 fL (80-100); Mean Platelet Volume 11.2 fL (9.1-12.4); NEUTROPHILS ABSOLUTE AUTO 4.18 K/mm3 (1.96-9.15); NEUTROPHILS PERCENT AUTO 71 % (41-73); Platelet Count 159 K/mm3 (150-400); RDW Standard Deviation 53.2 fL (35.1-46.3)
[2018-10-06 07:01] LABS: Albumin, Blood 2.5 g/dL (3.4-5.0); Albumin/Globulin Ratio 0.7 (0.8-1.8); Bilirubin, Total 0.4 mg/dL (0.1-1.0); Bun/Creatinine Ratio 19.2 (12.0-20.0); Creatinine, Blood 1.82 mg/dL (0.60-1.20); Globulin, Blood 3.4 g/dL (2.2-4.0); Total Protein, Blood 5.9 g/dL (6.4-8.2)
--- NOTE | 2018-10-06 16:50 | NUR ---
SHIFT SUMMARY PT A&OX2. CALM AND COOPERTIAVE WITH CARE. PT CONFUSED AND FORGETFUL, SETS OFF BED/CHAIR ALARM ATTEMPTING TO GET UP. PT 2 PERSON ASSIST TO BSC, WITH GB, FWW AND TACTILE/VERBAL QUES. PT DENIES SOB, N/V AND PAIN DURING SHIFT. PT RECEIVING IV ANTIBIOTICS. NAM IN PLACE; PATENT AND DRAINING. VSS. NO OTHER ACUTE CHANGES NOTED DURING SHIFT. WILL CONTINUE TO MONITOR UNTIL REPORT GIVEN TO ONCOMING RN.
--- NOTE | 2018-10-06 18:12 | NUR ---
SON CLYDE IN TO SEE PATIEINT, HE CAN BE REACHED AT [phone]. STATES HE & HIS SIBLINGS HAVE DISCUSSED A DISCHARGE PLAN AND ARE ALL IN AGREEMENT THAT PATIENT SHOULD BE DISCHARGE TO A PENITENTIARY CARE FACILITY. PT'S SON REQUESTS THAT HE NOT BE SENT TO [facility]. PT IS A WITH NO SERVICE CONNECTIONS. RETIRED FROM THE [employer]. WILL CONTINUE TO MONITOR
[2018-10-06 20:54] LABS: Stool Occult Blood Guaiac 1 Neg (Neg)
--- NOTE | 2018-10-07 05:08 | NUR ---
SHIFT SUMMARY PT SLEPT WELL, NAM PATENT AND DRAINING CLEAR YELLOW URINE. NO ACUTE EVENTS NOTED DURING THE NIGHT, WILL CONTINUE TO MONITOR.
[2018-10-07 11:49] LABS: Albumin, Blood 2.5 g/dL (3.4-5.0); Anion Gap 7 mmol/L (6-16); Blood Urea Nitrogen 28 mg/dL (8-24); Bun/Creatinine Ratio 16.6 (12.0-20.0); CO2, Blood 22 mmol/L (21-32); CPK Creatine Kinase 212 U/L (39-308); Calcium, Blood 7.8 mg/dL (8.5-10.1); Chloride, Blood 111 mmol/L (98-108); Creatinine, Blood 1.69 mg/dL (0.60-1.20); Glomerular Filtration Rate 41 (60-); Glucose, Blood 87 mg/dL (70-99); Phosphorus, Blood 2.4 mg/dL (2.5-4.9); Potassium, Blood 4.3 mmol/L (3.5-5.5); Sodium, Blood 140 mmol/L (136-145)
[2018-10-07 13:42] LABS: Stool Occult Blood Guaiac 1 Pos (Neg)
--- NOTE | 2018-10-07 18:08 | NUR ---
SHIFT SUMMARY PT A&OX2, CONFUSED AND FORGETFUL. CALM AND COOPERATIVE WITH CARE. PT UP IN CHAIR THIS AM AND WITH MEALS, 2 PERSON MAX ASSIST WITH FWW, GB AND TACTILE AND VERBAL CUES. PT DENIES PAIN, SOB AND N/V T/O SHIFT. PT REQUESING REGULAR DIET DURING SHIFT. PT RECEIVING IV ANTIBIOTICS. NAM DISCONTINUED PER ORDERS. SECOND STOOL SPECIMEN SENT DURING SHIFT. VSS. NO OTHER ACUTE CHANGES NOTE DURING SHIFT. WILL CONTINUE TO MONITOR UNTIL REPORT GIVEN TO ONCOMING RN.
--- NOTE | 2018-10-08 05:24 | NUR ---
SHIFT SUMMARY PT SLEPT FAIR. PT HAD NOT VOIDED, BLADDER SCAN SHOWED 569 ML'S URINE IN THE BLADDER. PT CATHED PER PROTOCOL AND 400 ML'S YELLOW URINE OUT. PT STILL UNABLE TO VOID THIS AM, HAS THE URGE BUT UNABLE TO VOID. WILL CONTINUE TO MONITOR.
[2018-10-08 05:50] LABS: BASOPHILS ABSOLUTE AUTO 0.05 K/mm3 (0.00-0.23); BASOPHILS PERCENT AUTO 1 % (0-2); EOSINOPHILS ABSOLUTE AUTO 0.32 K/mm3 (0.00-0.68); EOSINOPHILS PERCENT AUTO 6 % (0-6); Hemoglobin 9.4 g/dL (13.5-17.5); IMMATURE GRAN ABSOLUTE AUTO 0.02 K/mm3 (0.00-0.10); IMMATURE GRAN PERCENT AUTO 0 % (0-1); LYMPHOCYTES ABSOLUTE AUTO 0.71 K/mm3 (0.84-5.20); LYMPHOCYTES PERCENT AUTO 13 % (21-46); MONOCYTES ABSOLUTE AUTO 0.67 K/mm3 (0.16-1.47); MONOCYTES PERCENT AUTO 13 % (4-13); Mean Corpuscular HGB 33.5 pg (26.0-34.0); Mean Corpuscular HGB Conc 32.4 g/dL (31.5-36.5); Mean Corpuscular Volume 103 fL (80-100); Mean Platelet Volume 11.1 fL (9.1-12.4); NEUTROPHILS ABSOLUTE AUTO 3.59 K/mm3 (1.96-9.15); NEUTROPHILS PERCENT AUTO 67 % (41-73); Platelet Count 164 K/mm3 (150-400); RDW Coefficient Variation 13.5 % (11.7-14.2); RDW Standard Deviation 51.2 fL (35.1-46.3); Red Blood Cell Count 2.81 M/mm3 (4.30-5.90); White Blood Cell Count 5.36 K/mm3 (4.00-11.30)
[2018-10-08 06:13] LABS: Albumin, Blood 2.3 g/dL (3.4-5.0); Anion Gap 6 mmol/L (6-16); Blood Urea Nitrogen 28 mg/dL (8-24); Bun/Creatinine Ratio 16.5 (12.0-20.0); CO2, Blood 24 mmol/L (21-32); Chloride, Blood 113 mmol/L (98-108); Glomerular Filtration Rate 41 (60-); Glucose, Blood 79 mg/dL (70-99); Potassium, Blood 4.3 mmol/L (3.5-5.5); Sodium, Blood 143 mmol/L (136-145)
--- NOTE | 2018-10-08 10:42 | NUR ---
PT HAS NOT VOIDED DURING THIS SHIFT, BLADDER SCAN 754 ML, NOTIFIED DR FLORES. NO NEW ORDERS.
--- NOTE | 2018-10-08 12:00 | NUR ---
NOTIFIED DR FLORES OF BLADDER SCAN OF 754 THIS AM, NEW ORDER TO STAND HIM UP TO HAVE HIM VOID, PT REQUEST TO SIT ON BSC. PT VOIDED 150 WITH POST RESDIUAL BLADDER SCAN OF >925. DR FLORES NOTIFIED, NEW ORDER FOR STRAIGHT WITH 900CC OUT. WILL CONTINUE TO MONITOR.
--- NOTE | 2018-10-08 13:30 | NUR ---
PT UP TO BSC AFTER LUNCH, PT REPORTS BEING UBABLE TO VOID. WILL CONTINUE TO MONITOR
--- NOTE | 2018-10-08 16:28 | NUR ---
SHIFT SUMMARY PT A&OX2. COOPERATIVE WITH CARE. PT RESTING IN BED DURING SHIFT. UP IN CHAIR WITH MEALS, PT 2-3 PERSON ASSIT WITH WALKER AND GAITBELT. PT DENIES PAIN, SOB AND N/V DURING SHIFT. RECEIVING IV ANTIBITICS. PT STARTED ON PROSCAR, BUMEX AND ALDACTONE DURING SHIFT. PT TAKING MEDICATIONS WHOLE WITH APPLESAUCE. PT VOID X1 DURING THIS SHIFT WITH 150cc OUT, POST VOID BLADDER SCAN SHOW 925 IN BLADDER, STRAIGHT CATH AND HAD 900 OUT. VSS. NO OTHER ACUTE CHANGES NOTED DURING SHIFT. WILL CONTINUE TO MONITOR UNTIL REPORT GIVEN TO ONCOMING RN.
--- NOTE | 2018-10-08 18:00 | NUR ---
Met with son he went to [place] for look at benefits. Cecilia advised him to bring him to urgent care for eval for additional benefits. Will update transitional care liaison. to see if he can transfer to medical at [facility].
--- NOTE | 2018-10-08 18:01 | NUR ---
PT UP TO BSC FOR VOID OF 150cc. POST RESIDUAL BLADDER SCAN OF 769cc. DR FLORES NOTIFIED, NEW ORDER FOR STRAIGHT CATH NOW AND Q SHIFT. WILL CONTINUE TO MONITOR.
--- NOTE | 2018-10-09 03:51 | NUR ---
2024 DURING SHIFT REPORT IT WAS EXPRESSED TO THIS NURSE THAT THE MONS PUBIS HAD SOME INCREASED SWELLING THROUGHOUT THE DAY. UPON ASSESSMENT THE RIGHT SIDE FEELS BOGGY AND LIQUIDOUS WHILE THE L IS MORE FIRM. EXPRESSED NO PAIN UPON PALPATION. PT HAD NAM D/C'd THIS DAY. ORDERS WERE PLACED AFTER NAM D/C'd FOR POST RESIDUAL VOID BLADDER SCAN AND Q SHIFT STRAIGHT CATH. ON-CALL PHYSICIAN MADE AWARE OF NEW FINDINGS. STATED TO BLADDER SCAN AND NO OTHER NEW ORDERS. WCTM.
--- NOTE | 2018-10-09 05:37 | NUR ---
SHIFT SUMMARY ALERT, ANSWERS QUESTIONS APPROPRIATELY. COOPERATIVE WITH CARE. DOES NOT CALL. APPEARS LETHARGIC; RESTED MUCH OF SHIFT. UP TO BSC WITH 1 ASSIST. BLADDER SCAN YEILDED 314; WILL RE-CHECK THIS AM. ERYTHEMA/SWELLING TO RAC APPEARS TO HAVE INCREASED OVER NIGHT; PROPED ON PILLOW THIS AM. BED IN LOWEST POSITION. CALL LIGHT IN REACH. WCTM. REPORT TO ONCOMING RN.
[2018-10-09 06:14] LABS: Albumin, Blood 2.3 g/dL (3.4-5.0); Anion Gap 5 mmol/L (6-16); Blood Urea Nitrogen 31 mg/dL (8-24); Bun/Creatinine Ratio 16.9 (12.0-20.0); CO2, Blood 26 mmol/L (21-32); Calcium, Blood 8.2 mg/dL (8.5-10.1); Chloride, Blood 111 mmol/L (98-108); Creatinine, Blood 1.83 mg/dL (0.60-1.20); Glomerular Filtration Rate 37 (60-); Glucose, Blood 82 mg/dL (70-99); Potassium, Blood 4.2 mmol/L (3.5-5.5); Sodium, Blood 142 mmol/L (136-145)
--- NOTE | 2018-10-09 06:32 | NUR ---
0628 STATED DID NOT WANT TO TRY TO VOID; WHILE EYES WERE SHUT. BLADDER SCANNED; RETAINING 394 ML. ATTENDS DRY
[2018-10-09 14:05] LABS: Stool Occult Blood Guaiac 1 Pos (Neg)
--- NOTE | 2018-10-09 17:58 | NUR ---
SHIFT SUMMARY NO ACUTE CHANGES. PATIENT UP IN CHAIR FOR MEALS. PATIENT DENIES NAUSEA, PAIN, OR SHORTNESS OF BREATH. STRAIGHT CATHED PER ORDERS FOR POST VOID RETENTION. FAMILY AT BEDSIDE IN AFTERNOON. CALL LIGHT IN REACH, WILL CONTINUE TO MONITOR.
--- NOTE | 2018-10-10 05:07 | NUR ---
SHIFT SUMMARY PT MARSHALL A/O. SLOW TO RESPOND. 2 MAX ASSIST C GAIT BELT TO BSC AND COULDN'T VOID. BLADDER SCANNED HIM AT MIDNIGHT 840 IN BLADDER STRAIGHT CATH PER ORDER AND 700 OUT. HE WAS ABLE TO SLEEP T/O NIGHT. LEGS ON PILLOW. WILL CONT TO MONITOR BLADDER SCANS. CALL LIGHT IN REACH.
--- NOTE | 2018-10-10 06:11 | NUR ---
PT BLADDER SCANNED AGAIN AT 0600, SHOWED 740ML. STRAIGHT CATH AND GOT 700 OUT. BLOOD C STRAIGHT CATH.
--- NOTE | 2018-10-10 15:44 | NUR ---
SHIFT SUMMARY NO ACUTE CHANGES. PATIENT UP IN CHAIR FOR MEALS. NO COMPLAINTS OF PAIN, NAUSEA, OR SHORTNESS OF BREATH. STRAIGHT CATH ONCE PER SHIFT PER ORDERS. CALL LIGHT IN REACH, WILL CONTINUE TO MONITOR.
--- NOTE | 2018-10-11 04:48 | NUR ---
PROPELLANT ASSEMBLER SUMMARY NO ACUTE CHANGES THIS SHIFT. PT AAOX 2-3, OCCASIONALLY CONFUSED BUT EASILY REORIENTED. FOLLOWS DIRECTION. DENIES PAIN, SOB, N/V. PT CONTINUES TO RETAIN URINE; HAS NOT URINATED THIS SHIFT. WILL BLADDER SCAN AND STRAIGHT CATH PER ORDERS. PT STILL DENIES WANTING A NAM CATHETER PLACED. VSS, WILL CONTINUE TO MONITOR.
[2018-10-11 05:32] LABS: Albumin, Blood 2.5 g/dL (3.4-5.0); Anion Gap 6 mmol/L (6-16); Blood Urea Nitrogen 41 mg/dL (8-24); Bun/Creatinine Ratio 20.3 (12.0-20.0); CO2, Blood 32 mmol/L (21-32); Calcium, Blood 8.4 mg/dL (8.5-10.1); Chloride, Blood 106 mmol/L (98-108); Creatinine, Blood 2.02 mg/dL (0.60-1.20); Glomerular Filtration Rate 33 (60-); Glucose, Blood 92 mg/dL (70-99); Phosphorus, Blood 2.5 mg/dL (2.5-4.9); Potassium, Blood 4.6 mmol/L (3.5-5.5); Sodium, Blood 144 mmol/L (136-145)
--- NOTE | 2018-10-11 05:39 | NUR ---
STRAIGHT CATH BLADDER SCAN >999 ML. STRAIGHT CATH DRAINED 900 ML. POST CATH BLADDER SCAN 181 ML.
--- NOTE | 2018-10-11 15:43 | NUR ---
SHIFT SUMMARY NO ACUTE CHANGES. PATIENT UP IN CHAIR FOR MEALS. FAMILY VISITING IN AFTERNOON. DENIES PAIN, NAUSEA, OR SHORTNESS OF BREATH. CARE MANAGEMENT WORKING WITH FAMILY TO FIND PLACEMENT. OT WORKED WITH PATIENT TODAY. CALL LIGHT IN REACH, WILL CONTINUE TO MONITOR.
--- NOTE | 2018-10-11 19:10 | NUR ---
Was called to room by nursing. Family is present. They have many questions about billing and placement. Mainly, son states that he is in distress about discharge plan. Reviewed pt's chart, medications, admission. Advised that he does qualify for hospice services. Reviewed comfort care. They would like him to have the freedom to chose his own food: Right now, pt is on thickened liquid diet, and he hates this. Family choses to place pt on comfort care. Call placed to Dr Barrera, who declines at this time to place pt on comfort care. She would like to address this tomorrow. Call placed to Andreina, nurse, to update. She is requesting to place and leave mac catheter in place, due to the fact that straight cath BID is starting to develop redness and skin breakdown in the urethra, per Andreina. Dr. Barrera states that pt declined mac earlier today and does not want one placed at this time. Call back to Andreina to update. Will remain available.
[2018-10-11 22:34] LABS: Source, Urine Catheter
[2018-10-11 22:40] LABS: Bilirubin, Urine Neg (Neg); Blood, Urine Neg (Neg); Glucose Qualitative, Urine Neg (Neg); Ketones, Urine Neg (Neg); Leukocyte Esterase, Urine Neg (Neg); Nitrite, Urine Neg (Neg); Protein, Urine 2+ (Neg); Specific Gravity, Urine 1.005 (1.003-1.022); Urobilinogen, Urine NORM (Normal)
[2018-10-11 22:55] LABS: Appearance, Urine Clear (Clear); Color, Urine Yellow (P-Yellow)
[2018-10-11 22:56] LABS: Bacteria Not Seen /hpf; Red Blood Cells, Urine Not Seen /hpf (0-2); Squamous Epithelial Cells Not Seen /hpf (Few); White Blood Cells, Urine Rare /hpf (0-5)
--- NOTE | 2018-10-12 04:34 | NUR ---
CANDLE MAKER SUMMARY PT AAOX2 AND COOPERATIVE WITH CARE. PT STILL RETAINING URINE. BLADDER SCAN AT BEGINNING OF SHIFT SHOWED >999 ML. TOLD PT THAT HE NEEDED TO BE STRAIGHT CATHED. PT EXPRESSED FRUSTRATION WITH MULTIPLE CATHS DAILY AND STATED THEY WERE VERY PAINFUL. PT NOTED TO HAVE SOME BLOOD IN URINE WITH STRAIGHT CATH ON PREVIOUS SHIFT. EXPLAINED TO PT THE POSSIBILITY OF PLACING A NAM CATHETER. EXPLAINED THAT A NAM CATHETER WOULD ELIMINATE THE NEED TO CATH MULTIPLE TIMES PER DAY. ASKED PT IF HE WOULD BE OPEN TO THE IDEA OF A NAM CATH AND THE PT STATED "WELL LETS TRY IT". SPOKE WITH SONDRA CORLEY DELICATESSEN STORE MANAGER REGARDING NEED FOR MULTIPLE STRAIGHT CATHS EACH DAY AND PTS FRUSTRATION DUE TO INCREASED PAIN; RECIEVED ORDER FROM SONDRA FOR A NAM CATHETER. PLACED NAM CATHETER WHICH INSTANTLY DRAINED 1200 ML OF CLEAR YELLOW URINE, UA SENT PER PROTOCOL. GAVE PT TYLENOL X1 FOR URETHRAL PAIN FROM FREQUENT STRAIGHT CATHS WHICH HELPED PT REST SOON AFTER. ENCOURAGING PO INTAKE OFTEN POSSIBLE. PT DRINKS FLUIDS BUT DOES NOT TAKE IN MUCH FOOD. VSS, WILL CONTINUE TO MONITOR.
--- NOTE | 2018-10-12 05:34 | NUR ---
PT ACCIDENTALLY PULLED NAM CATHETER ALMOST ALL THE WAY OUT WITH BALLOON STILL INFLATED. BALLOON DEFLATED BY THIS RN AND NAM CATHETER REMOVED. SOME BLOOD DISCHARGED FROM URETHRA. CATHETER LEFT OUT AT THIS TIME, WILL CONTINUE TO MONITOR.
[2018-10-12 06:25] LABS: Albumin, Blood 2.5 g/dL (3.4-5.0); Anion Gap 6 mmol/L (6-16); Blood Urea Nitrogen 40 mg/dL (8-24); Bun/Creatinine Ratio 21.3 (12.0-20.0); CO2, Blood 32 mmol/L (21-32); Calcium, Blood 8.5 mg/dL (8.5-10.1); Chloride, Blood 103 mmol/L (98-108); Creatinine, Blood 1.88 mg/dL (0.60-1.20); Glomerular Filtration Rate 36 (60-); Glucose, Blood 97 mg/dL (70-99); Phosphorus, Blood 2.5 mg/dL (2.5-4.9); Potassium, Blood 4.4 mmol/L (3.5-5.5); Sodium, Blood 141 mmol/L (136-145)
--- NOTE | 2018-10-12 13:49 | NUR ---
PT DISCHARGED PT DISCHARGED. PT IN STABLE CONDITION WITH VSS. PT & DAUGHTER IN LAW EDUCATED ON DC INSTRUCTIONS & STATE NO FURTHER QUESTIONS. PT WHEELED OUT BY AIDE & DRIVEN HOME BY DAUGHTER IN LAW. PT IVS REMOVED & INTACT. [facility]
--- NOTE | 2018-10-12 15:26 | NUR ---
BLADDER VOLUME DR. FLORES NOTIFIED OF PT BLADDER VOLUME OF 615. DR. FLORES STATED TO WAIT OFF ON STRAIGHT CATH UNTIL THE PT STATE HE FEELS DISCOMFORT. PT STATED TO DR. FLORES THAT HE DID NOT WANT TO BE CATHED ANYMORE. PT EXPECTED TO TRANSITION TO COMFORT CARE AFTER DR. FLORES SPEAKS WITH FAMILY.
--- NOTE | 2018-10-12 17:43 | NUR ---
SHIFT SUMMARY DR. FLORES SPOKE WITH PT & FAMILY ABOUT STARTING COMFORT CARE. REGULAR DEIT ORDERED PER DR. FLORES REQUEST. NO CHANGES IN ASSESSMENT AT THIS TIME. VSS. PT WILL BE STARTED ON COMFORT CARE THIS EVENING. PT HAS NOT VOIDED THIS SHIFT. PT STATES NO PAIN OR DISCOMFORT IN LOWER ABD. PT STATES HE DOES NOT NEED TO VOID. PT CONTINUES TO HAVE BLOOD SEEP FROM [facility]. HOLLY CARE NEEDED. WILL CONTINUE TO MONITOR UNTIL TURNOVER IS COMPLETE.
--- NOTE | 2018-10-12 22:25 | NUR ---
COMFORT CARE PATIENT SLEEPING IN ROOM. NO S/SX OF PAIN, SOB, AND N/V. WILL CONTINUE TO MONITOR.
--- NOTE | 2018-10-13 02:55 | NUR ---
BLADDER SCAN 1072 mL. STRAIGHT CATH= 1,100 mL OUT. POST VOID RESIDUAL 52 mL.
--- NOTE | 2018-10-13 03:27 | NUR ---
SHIFT SUMMARY PATIENT ON COMFORT CARE. BLADDER SCAN 1,072 AND STRAIGHT CATH= 1,100 mL OUT WITH 52 mL RESIDUAL. NO OTHER CHANGES OBSERVED THIS SHIFT. HOLLY CARE FOR BLOOD SEEP FROM [facility]. DENIES PAIN, SOB, AND N/V. TAKES MEDS CRUSHED IN APPLE SAUCE OR WHOLE IF A FEW. REGULAR DIET. CALL LIGHT IN REACH. BED IN LOWEST POSITION. WILL CONTINUE TO MONITOR UNTIL DAY SHIFT NURSE ASSUMES CARE.
--- NOTE | 2018-10-13 10:02 | NUR ---
DR. LEUNG SAID TO STOP STRAIGHT CATHING AND BLADDER SCANNING PT. PT IS COMFORT CARE AND NOT C/O ANY DISCOMFORT. NO OTHER NEW ORDERS AT THIS TIME.
--- NOTE | 2018-10-13 17:10 | NUR ---
SHIFT SUMMARY- PT AXO TO SELF AND ABLE TO ANSWER SIMPLE YES/NO QUESTIONS. PT DENIES PAIN. DENIES SOB. RESP E/U ON RA. DENIES N/V. TURNS Q2H. PT'S SON IN TO VISIT THIS AFTERNOON. NO OTHER SIGNIFICANT CHANGES THIS SHIFT.
--- NOTE | 2018-10-14 03:19 | NUR ---
SHIFT SUMMARY PATIENT IS ON COMFORT CARE. SON PRESENT AT SHIFT CHANGE. AXO X2 AND TWO PERSON ASSIST W/GAIT/FWW TO BSC. DENIES PAIN, SOB, AND N/V. REGULAR DIET. ORDERS TO STOP BLADDER SCAN AND STRAIGHT CATH. SON REPORTED PATIENT TOO TIRED TO TAKE EVENING MEDS AND TO LET HIM SLEEP. CALL LIGHT IN REACH. BED IN LOWEST POSITION. WILL CONTINUE TO MONITOR UNTIL DAY SHIFT NURSE ASSUMES CARE.
--- NOTE | 2018-10-14 16:03 | NUR ---
SHIFT SUMMARY- PT AXO TO SELF. PT DENIES PAIN. DENIES SOB. RESP E/U ON RA. DENIES N/V. 2 PERSON ASSIST WITH GAIT BELT TO BSC. TURNS Q2H. NO OTHER SIGNIFICANT CHANGES THIS SHIFT.
--- NOTE | 2018-10-14 19:34 | NUR ---
COMFORT CARE 1933 DINNER COMPLETED. STATED WANTED TO GO BACK TO BED FROM CHAIR. 2 ASSIST MAX TRANSFER FROM CHAIR TO BED WITH GAIT BELT. STATED NO PAIN/DISCOMFORT. DID SAY WANTED SOMETHING TO DRINK. WCTM. BED IN LOWEST POSITION. ALARM ON. CALL LIGHT IN REACH.
--- NOTE | 2018-10-14 22:47 | NUR ---
COMFORT CARE 2149 APPEARED TO BE RESTING UPON ENTRY. MEDICATIONS GIVEN. NO ACUTE CHANGES. BED IN LOWEST POSITION. ALARM ON. CALL LIGHT WITHIN REACH. WCTM.
--- NOTE | 2018-10-15 00:05 | NUR ---
COMFORT CARE 0005 APPEARS TO BE RESTING COMFORTABLY. NO ACUTE CHANGES. BED IN LOWEST POSITION. BED ALARM ON. CALL LIGHT IN REACH. [facility].
--- NOTE | 2018-10-15 02:54 | NUR ---
COMFORT CARE 0205 BED ALARM GOING OFF; PATIENT TRY TO GET OUT OF BED. STATED HAD TO GO TO THE BATHROOM, NOW! URINATED AROUND 250 ML WITH A X-SMALL BM. ATTENDS CHANGED. REPOSITIONED IN BED. BED ALARM REPLACED AND BED IN LOWEST POSITION. CALL LIGHT WITHIN REACH. [facility].
--- NOTE | 2018-10-15 04:20 | NUR ---
COMFORT CARE 0421 APPEARS TO BE RESTING COMFORTABLY. NO ACUTE CHANGES SINCE LAST ASSESSMENT. BED IN LOWEST POSITION. ALARM ON. CALL LIGHT WITHIN REACH. WCTM.
--- NOTE | 2018-10-15 04:26 | NUR ---
SHIFT SUMMARY ALERT, ABLE TO MAKE NEEDS KNOWN. YOCHA DEHE. ANSWERS QUESTIONS TO BES OF OWN ABILITY. COOPERATIVE WITH CARE. SON CURIOUS OF DISCHARGE PLANNING; EXPLAINED THAT CASE MANAGEMENT WOULD PROBABLY BE IN Monday10/14/18 TO DISCUSS THIS FURTHER. APPEARED TO REST OFF AND ON MUCH OF SHIFT. NO ACUTE CHANGES OVERNIGHT. BED IN LOWEST POSITION. ALARM ON. CALL LIGHT WITHIN REACH. WCTM. REPORT TO ONCOMING RN.
--- NOTE | 2018-10-15 15:49 | NUR ---
Mr. Perry was pleasant and soft-spoken. He told me that his dies 1 year ago and "everything fell apart after that." [place] told [place]. He admits this was the best time of his life. He says he has very little to live for now. That said, he does not appear sad when he states this. More [id number]. We had a delightful, albeit disjointed, conversation. He denied pain or concerns other than "I'm ready to get outta here." Non-orthodox, but responded well to theraputic listening and companionship. He appeared to crave being heard and understood. I will remain available to pt and family.
--- NOTE | 2018-10-15 17:58 | NUR ---
SHIFT SUMMARY PT ON COMFORT CARE. NO ACUTE CHANGES THIS SHIFT. PT EAGER TO "GO HOME" PT UP TO CHAIR THROUGHOUT THE DAY. DENIES PAIN, SOB AND NV. BED IN LOW POSITION, CALL LIGHT BABAT[place] REACH
--- NOTE | 2018-10-15 18:38 | NUR ---
Pt sitting up in chair. Denies pain. No concerns, family not at bedside, appears comfortable. will follow up tomorrow for comfort managment.
--- NOTE | 2018-10-16 05:25 | NUR ---
SHIFT SUMMARY: COMFORT CARE MAINTANED DURING THIS SHIFT. PT DENIES PAIN OR DISCOMFORT, JUST REPORTS BEING EAGER TO "GET OUT OF HERE". PT UP TO CHAIR AND THEN TRANSFERRED TO BED FOR SLEEP c 2 PER MAX ASSIST. CONT/INCONTINENT. SEVERAL ABRASIONS NOTED T/O BODY, DRESSING C/D/I. PT TO D/C TO FOR HOSPICE CARE. PT AND FAMILY AWARE. NO OTHER CHANGES TO REPORT. WILL CONT TO MONITOR AND PROVIDE COMFORT MEASURES UNTIL PRESUMED BY ONCOMING RN.
[2018-10-16] MEDS ORDERED: ALBU2.5V5 NEB (09:33)
[2018-10-16] MEDS ORDERED: ACET325 PO (09:33)
[2018-10-16] MEDS ORDERED: LORA1 PO (09:34)
[2018-10-16] MEDS ORDERED: FINA5 PO (09:34)
[2018-10-16] MEDS ORDERED: MORP20L SL (09:35)
--- NOTE | 2018-10-16 09:52 | NUR ---
SHIFT SUMMARY PT HAS HAD NO ACUTE CHANGES THIS SHIFT, NO COMPLAINTS OF ANY KIND, DIL WAS AT BEDSIDE AT SHIFT START, UPDATED HER ON PLANS FOR DC, CALLED SON (CLYDE) LEFT MESSAGE OF DC PLAN TIME & PLACE. PT IS DRESSED, PACKED AND WAITING IN CHAIR FOR TRANSPORT TO [facility]. REPORT CALLED TO RN @ [facility] @ [id number].
--- NOTE | 2018-10-16 10:22 | NUR ---
[facility] PT PICKED UP VIA W/C @ 1020, ALL BELONGINGS XFER'D W/PT.
== END 2018-10-16 10:21 | DRG 682 ==
LOC: ER 15:34 → PCU 17:39 → MEDS 10-05 18:55 → ENPENDDIS 10-16 09:33 → MEDS 10-16 10:21
PROVIDERS: Emergency Medicine; Internal Medicine; Nurse Practitioner Acute Care; ADMIT Internal Medicine
DX: N17.9 Acute kidney failure, unspecified (principal); E43 Unspecified severe protein-calorie malnutrition; M62.82 Rhabdomyolysis; L03.115 Cellulitis of right lower limb; L03.116 Cellulitis of left lower limb; E87.0 Hyperosmolality and hypernatremia; Z68.1 Body mass index [BMI] 19.9 or less, adult; I48.2 Chronic atrial fibrillation; Z51.5 Encounter for palliative care; G20 Parkinson's disease; Z87.891 Personal history of nicotine dependence; E87.5 Hyperkalemia; N18.3 Chronic kidney disease, stage 3 (moderate); J44.9 Chronic obstructive pulmonary disease, unspecified; I12.9 Hypertensive chronic kidney disease with stage 1 through stage 4 chronic kidney disease, or unspecified chronic kidney disease; E86.9 Volume depletion, unspecified; R13.10 Dysphagia, unspecified; R33.8 Other retention of urine; E83.39 Other disorders of phosphorus metabolism; N40.1 Benign prostatic hyperplasia with lower urinary tract symptoms; R19.5 Other fecal abnormalities; Z66 Do not resuscitate; Z79.891 Long term (current) use of opiate analgesic; F02.80 Dementia in other diseases classified elsewhere, unspecified severity, without behavioral disturbance, psychotic disturbance, mood disturbance, and anxiety
CPT/HCPCS: 36415; 51701; 51702; 70450; 71045; 74176; 80053; 80069; 81001; 82270; 82550; 82553; 83735; 85025; 85610; 85730; 86850; 86900; 86901; 92523; 92610; 93005; 93010; 94760; 94762; 96365-59; 96375-59; 96376-59; 97162; 97166; 97530; 97535; 99285-25; C9113; J0696; J1815; J7030; J7042